=== PATIENT | female | born 1940 | race Caucasian/White ===

== ENCOUNTER 2022-01-02 09:47 | Emergency (ER) | payer MEDICARE ==
[~2022-01-02] VITALS: Ht 165.1 cm; Wt 72.6 kg
[2022-01-02 10:35] LABS: HEMOGLOBIN 13.8 gm/dl (12.3-15.3); RED BLOOD COUNT 4.24 M/UL (4.00-5.10); WHITE BLOOD COUNT 3.9 K/UL (4.5-11.0)
[2022-01-02 11:04] LABS: BUN/CREATININE RATIO 22 (0-10)
== END 2022-01-02 16:03 | disposition home or self-care (01) ==
LOC: ER1 09:47
PROVIDERS: Emergency Medicine
DX: U07.1 COVID-19 (principal); J44.9 Chronic obstructive pulmonary disease, unspecified; R91.1 Solitary pulmonary nodule
CPT/HCPCS: 0240U; 71045; 80053; 82550; 82553; 83690; 84484; 85025; 85379; 87081; 87880; 93005; 99285; J2405; M0222; Q9967